=== PATIENT | male | born 1965 | race African-American/Black ===

== ENCOUNTER → 2016-09-28 | Outpatient (CLI) | payer OTHER ==
[~2016-09-28] MED LIST: GLIPIZIDE10 M1 PO; LISINOPRIL5 MG PO; METFORMIN HCL500 M4 PO; NEURONTIN300 MG PO; NOVOLOG MI100 UNIT/M SC; PRAVACHOL80 MG PO; PRINZIDE 10-121 EACH PO; ZANTAC300 MG PO; ZOFRAN ODT4 MG PO
== END | disposition home or self-care (01) ==
LOC: NUC 07:15
DX: R10.30 Lower abdominal pain, unspecified (principal); R11.10 Vomiting, unspecified; R63.4 Abnormal weight loss
CPT/HCPCS: 78264; A9541

== ENCOUNTER → 2016-10-11 | Outpatient (CLI) | payer OTHER ==
[2016-10-11 13:38] LABS: POINT-OF-CARE METER ID UU13113694
[2016-10-11 16:59] LABS: POINT-OF-CARE METER ID UU13113819
== END | disposition home or self-care (01) ==
LOC: AMB 12:32
PROVIDERS: Internal Medicine Gastroenterology
PROC: 0DJD8ZZ Inspection of Lower Intestinal Tract, Via Natural or Artificial Opening Endoscopic (ICD-10-PCS; principal; 2016-10-11)
DX: R10.30 Lower abdominal pain, unspecified (principal); K57.90 Diverticulosis of intestine, part unspecified, without perforation or abscess without bleeding; I10 Essential (primary) hypertension; M54.5 Low back pain; M51.9 Unspecified thoracic, thoracolumbar and lumbosacral intervertebral disc disorder
CPT/HCPCS: 82948; 93005; B4087; J2250; J3010

== ENCOUNTER 2016-12-23 13:23 | Emergency (ER) | payer OTHER ==
[~2016-12-23] VITALS: Ht 175.3 cm; Wt 66.0 kg
[2016-12-23 13:45] LABS: HEMATOCRIT 47.7 % (38.0-50.0); MCH 30.1 PG (29.0-34.0); MCHC 34.4 G/DL (30.0-36.0); MCV 87.7 FL (86-99); MEAN PLAT.VOLUME 9.6 uM^3 (9.0-12.4); PLATELET COUNT 224 K/uL (156-360); RBC DIS.WIDTH-CV 12.7 % (11.8-14.6); RBC DIS.WIDTH-SD 40.8 % (39-53); RED BLOOD COUNT 5.44 M/uL (4.00-5.50); WHITE BLOOD COUNT 3.4 K/uL (4.1-10.2)
[2016-12-23 13:54] LABS: CHLORIDE 100 mEq/L (99-109); POTASSIUM 3.9 mEq/L (3.7-5.4); SODIUM 136 mEq/L (136-147)
[2016-12-23 13:56] LABS: GLUCOSE 272 mg/dL (70-99)
[2016-12-23 13:58] LABS: ANION GAP 10 MEQ/L (2-14); TOTAL BILIRUBIN 0.7 mg/dL (0.0-1.0)
[2016-12-23 14:00] LABS: ALKALINE PHOSPHATASE 60 IU/L (3-129); GFR ESTIMATE (CALCULATED) > 59 mL/min/
[2016-12-23 14:01] LABS: UREA NITROGEN (BUN) 12 mg/dL (9-23)
[2016-12-23 14:07] LABS: TROP-I INTERPRETATION NEGATIVE; TROPONIN-I < 0.01 ng/mL (0.0-0.30)
[2016-12-23 16:21] LABS: TROP-I INTERPRETATION NEGATIVE; TROPONIN-I < 0.01 ng/mL (0.0-0.30)
[2016-12-23] MEDS ORDERED: FLEXERIL10 MG PO (16:50)
[2016-12-23] MEDS ORDERED: ZANTAC150 MG PO (16:50)
[2016-12-23] MEDS ORDERED: ZOFRAN ODT4 MG PO (16:50)
[2016-12-23] MEDS ORDERED: REGLAN10 MG PO (16:50)
[2016-12-23 17:20] VITALS: BP 132/82
== END 2016-12-23 17:27 | disposition home or self-care (01) ==
LOC: EME 13:23 → RME 13:23
PROVIDERS: Nurse Practitioner Family
DX: M94.0 Chondrocostal junction syndrome [Tietze] (principal); K21.9 Gastro-esophageal reflux disease without esophagitis; R11.2 Nausea with vomiting, unspecified; R00.2 Palpitations; E11.65 Type 2 diabetes mellitus with hyperglycemia; E78.5 Hyperlipidemia, unspecified; I10 Essential (primary) hypertension; Z79.4 Long term (current) use of insulin; Z79.84 Long term (current) use of oral hypoglycemic drugs; Z87.891 Personal history of nicotine dependence
CPT/HCPCS: 71020; 80048; 80053; 84484; 85027; 93005; 99281; 99284

== ENCOUNTER → 2017-01-31 | Outpatient (CLI) | payer OTHER ==
[~2017-01-31] VITALS: Ht 177.8 cm; Wt 66.8 kg
[~2017-01-31] MED LIST changes: +FLEXERIL10 MG PO; +REGLAN10 MG PO; +ZANTAC150 MG PO
[2017-01-31 10:12] LABS: POINT-OF-CARE METER ID UU13113694
[2017-01-31 11:09] LABS: POINT-OF-CARE METER ID UU13113819
== END | disposition home or self-care (01) ==
LOC: AMB 09:30
PROVIDERS: Internal Medicine Gastroenterology
PROC: 0DB68ZX Excision of Stomach, Via Natural or Artificial Opening Endoscopic, Diagnostic (ICD-10-PCS; principal; 2017-01-31)
DX: K29.70 Gastritis, unspecified, without bleeding (principal); G89.29 Other chronic pain; R11.2 Nausea with vomiting, unspecified; R63.4 Abnormal weight loss; I10 Essential (primary) hypertension; E11.40 Type 2 diabetes mellitus with diabetic neuropathy, unspecified; Z79.4 Long term (current) use of insulin; E78.5 Hyperlipidemia, unspecified; Z87.891 Personal history of nicotine dependence; Z83.3 Family history of diabetes mellitus; Z83.49 Family history of other endocrine, nutritional and metabolic diseases; Z82.49 Family history of ischemic heart disease and other diseases of the circulatory system
CPT/HCPCS: 82948; 88305; 88342 TC